=== PATIENT | male | born 1980 | race Two or more races ===

== ENCOUNTER → 2016-12-21 | Outpatient (CLI) | payer OTHER ==
--- NOTE | 2016-12-24 23:38 | ECWPNPC ---
PATIENT NAME: FANNIE VALLE : 1980 GENDER: MALE VISIT DATE: 12/21/2016 DISCHARGE DATE: 12/21/16 1018 VISIT LOCKED DATE TIME: PHYSICIAN: JOAQUIM LIM RESOURCE: JOAQUIM LIM REASON FOR APPOINTMENT 1. NECK HISTORY OF PRESENT ILLNESS HISTORY OF PRESENT ILLNESS: PAIN THE PATIENT DESCRIBES THE PAIN... 35 YEAR OLD MALE PATIENT WITH HISTORY OF CHRONIC NECK PAIN. PATIENT DESCRIBES THE PAIN ACHING, AND HAVING IT ALL THE TIME WITH A PAIN SCORE OF 3/10 ON TODAY'S VISIT. PATIENT REPORTS THAT HIS NECK PAIN STARTED ABOUT 10 YEARS AGO, HE WAS SITTING AT A CHAIR AT HIS DESK WHEN HE BEGAN TO FEEL TIGHTNESS HIS NECK WITH DIFFICULTIES IN THE MOVEMENT OF HIS NECK. PATIENT STATES THAT SINCE THEN TWICE OR THREE TIME A YEAR THE TIGHTNESS AND RESTRICTION OF MOVEMENT WOULD RETURN. PATIENT STATES THAT 6 YEARS PRIOR TO THE NECK PAIN HE SUFFERED A TRAUMATIC BRAIN INJURY. PATIENT STATES THAT DUE TO THE NECK PAIN HE HAS RADIATING PAIN UP THE BACK OF HIS HEAD AND RADIATING PAIN THE DOWN THE BACK OF HIS SHOULDER AND DOWN THE ARM. PATIENT DENIES UNEXPLAINABLE WEIGHT LOSS, FEVER, CHILLS, NEW CHANGES ON HIS URINARY OR BOWEL CONTROL. FALL RISK SCREENING: SCREENING :NO FALLS IN THE PAST YEAR CURRENT MEDICATIONS TAKING VITAMIN D-3 5000 UNIT TABLET 1 TABLET ORALLY ONCE A DAY TAKING VITAMIN B12 500 MCG TABLET 1 TABLET ORALLY ONCE A DAY TAKING FISH OIL 1000 MG CAPSULE 1 CAPSULE ORALLY ONCE A DAY TAKING RANITIDINE 75 75 MG TABLET 1 TABLET ORALLY TWICE A DAY MEDICATION LIST REVIEWED AND RECONCILED WITH THE PATIENT PAST MEDICAL HISTORY TBI DEPRESSION ANXIETY AUDITORY PROCESSING DISORDER ALLERGIES N.K.D.A. SURGICAL HISTORY DENIES PAST SURGICAL HISTORY FAMILY HISTORY FATHER: ALIVE 56 YRS MOTHER: ALIVE 58 YRS SIBLINGS: ALIVE SON(S): ALIVE 9 YRS 3 BROTHER(S) , 1 SISTER(S) - HEALTHY. 1 SON(S) - HEALTHY. 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 VISION IMPAIRED?YES :CORRECTIVE LENSES COGNITIVELY IMPAIRED?YES TBI 2004 READINESS TO LEARN?YES LEARNING PREFERENCES?NO LEARNING CAPABILITIES PRESENT?YES EMOTIONAL BARRIERS?NO SPECIAL DEVICES?NO ASSURANCE MANAGER INSURANCE NEEDED?NO ADVANCED DIRECTIVES HEALTH CARE PROXY?NO WOULD YOU LIKE MORE INFORMATION?NO DO YOU HAVE A DNR?NO WOULD YOU LIKE MORE INFORMATION?NO LIVING WILL?NO WOULD YOU LIKE MORE INFORMATION?NO POWER OF REGULATORY ANALYST?NO WOULD YOU LIKE MORE INFORMATION?NO HOSPITALIZATION/MAJOR DIAGNOSTIC PROCEDURE TBI 2003 REVIEW OF SYSTEMS CONSTITUTIONAL: ANY CHANGE IN YOUR MEDICAL CONDITION? NO . CHILLS NO . FEVER NO . INFECTION: DO YOU HAVE NEW INFECTIONS? NO . DO YOU HAVE HISTORY OF MRSA? NO . MUSCULOSKELETAL: ANY NEW PATTERNS OF PAIN OR NUMBNESS? NO . GASTROENTEROLOGY: ANY NEW CHANGE IN BOWEL CONTROL? NO . GENITOURINARY: ANY NEW CHANGE IN BLADDER CONTROL? YES, DRIBBLING BEGAN APPROXIMATELY 2009 . IS THERE A CHANCE YOU COULD BE ? NO . HEMATOLOGY/LYMPH: DO YOU TAKE ANY BLOOD THINNERS? (FOR EXAMPLE- COUMADIN, PLAVIX, AGGRENOX, PLATEL, PRADAXA, OR XARELTO) NO . WHEN WAS YOUR LAST DOSE? DATE: TIME: . NEUROLOGY: HAVE YOU FALLEN IN THE PAST 6 MONTHS? NO . ANY NEW EXTREMITY NUMBNESS OR WEAKNESS? NO . CARDIOLOGY: DO YOU HAVE A PACEMAKER OR DEFIBRILLATOR? NO . RESPIRATORY: HAVE YOU BEEN SICK IN THE PAST WEEK? NO . FEVER NO . FLU LIKE SYMPTOMS? NO . COUGH NO . INTEGUMENTARY: DO YOU HAVE ANY RASHES OR OPEN SORES? NO . ALLERGIC/IMMUNO: ARE YOU ALLERGIC TO SHELLFISH OR IV DYE? NO . ANY NEW ALLERGIES? NO . PSYCHIATRIC: DO YOU HAVE THOUGHTS OF HURTING YOURSELF OR SOMEONE ELSE? NO . ARE YOU ABUSED, NEGLECTED, OR IN AN UNSAFE ENVIRONMENT? NO . ENDOCRINOLOGY: ARE YOU DIABETIC? NO . OTHER: DO YOU NEED ANY PRESCRIPTIONS? NO . IF YES, PLEASE LIST: ____ . ANY NEW PROBLEMS WITH YOUR MEDICATIONS? NO . WHEN DID YOU LAST EAT? ____ . WHEN DID YOU LAST DRINK? ____ . WHAT DID YOU LAST DRINK? ____ . NAME OF PERSON DRIVING YOU HOME? ____ . DO YOU HAVE ANY OTHER QUESTIONS OR CONCERNS NO . REVIEWED BY: PROVIDER: JAOQUIM LIM MD . VITAL SIGNS WT 208 LBS, HT 72 IN, BMI 28.21 INDEX, BP 134/77 MM HG, HR 67 /MIN, RR 16 /MIN, TEMP 98.3 F, OXYGEN SAT % 97%, REVIEWED BY: CS (DONE AT 0847). EXAMINATION : PATIENT IS ALERT O X 3 AND COOPERATIVE. PATIENT IS ABLE TO EXTEND HIS NECK TO 40 DEGREES AND FLEX HIS NECK TO 15 DEGREES. LATER MOVEMENT OF THE NECK TO THE LEFT 10 DEGREES AND RIGHT 10 DEGREES WITH DISCOMFORT. PATIENT'S RIGHT ARM IS WEAKER COMPARED TO HIS LEFT ARM. RIGHT HAND VASCULAR TECHNICIAN IS WEAKER COMPARED TO THE LEFT HAND VASCULAR TECHNICIAN. THE RIGHT SHOULDER IS REDUCED COMPARED TO THE LEFT SHOULDER. ASSESSMENTS CERVICALGIA - M54.2 (PRIMARY) CERVICAL DISC DISORDER AT C4-C5 LEVEL WITH RADICULOPATHY - M50.121 CERVICAL DISC DISORDER AT C5-C6 LEVEL WITH RADICULOPATHY - M50.122 CERVICAL DISC DISORDER AT C6-C7 LEVEL WITH RADICULOPATHY - M50.123 TREATMENT CERVICALGIA START GABAPENTIN CAPSULE, 300 MG, 1 CAPSULE, ORALLY FOR PAIN, BEFORE BEDTIME, 30 DAY(S), 30, REFILLS 0 NOTES: WE DISCUSSED SEVERAL ISSUES WITH MR. VALLE PAIN MANAGEMENT CASE. AT THIS TIME I WILL HAVE THE PATIENT START ON GABAPENTIN TODAY. 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 INFORMED THE PATIENT IN ORDER TO BETTER ASSESS HIS PAIN MANAGEMENT NEEDS I WILL NEED A COPY OF THE CERVICAL MRI. PATIENT WILL FOLLOW UP WITH ME IN ONE WEEK AND HE WILL BRING A COPY OF THE MRI WITH HIM ON THE NEXT VISIT. INSTRUCTIONS WERE GIVEN, QUESTIONS WERE ANSWERED, PATIENT REPORTS UNDERSTANDING AND AGREES WITH THE PLAN. I, DREA BRYSON, DOCUMENTED THE ABOVE INFORMATION ACTING A SCRIBE FOR DR. LIM. I HAVE REVIEWED THE ABOVE DOCUMENT, WRITTEN BY DREA AVELARIBAbelino AND I VERIFY THAT IT IS ACCURATE. DR. DONTA AKINS -THANK YOU FOR YOUR KIND REFERRAL OF MR. VALLE. IF YOU WOULD LIKE TO DISCUSS HIS CASE WITH ME, PLEASE CALL ME AT THE PAIN CENTER AT [phone]. [facility] PA[facility] TEACHING: MEDICATIONS GABAPENTIN INFORMATION PROVIDED TO PT. VERBALIZED UNDERSTANDING.. PROCEDURE TEACHING ORIENTED TO PLAN OF CARE AND PAIN MANAGEMENT. VERBALIZED UNDERSTANDING.. PROCEDURE CODES FA211 ESTABILISHED PATIENT [facility] FACILITY CHARGE D5854 PAIN ASSESS POS TOOL F/U PLAN DOC G8427 DOC MEDS VERIFIED W/PT OR RE DISPOSITION & COMMUNICATION FOLLOW UP 1 WEEK ELECTRONICALLY SIGNED BY JOAQUIM LIM MD ON 12/24/2016 AT 05:02 PM EDT DISCLAIMER : THIS IS A VISIT SUMMARY EXTRACTED FROM THE [employer] CHART. IT IS NOT A COPY OF THE [employer] PROGRESS NOTE. JONNIE
== END ==
LOC: M PAIN 08:40
PROVIDERS: ATTEND Anesthesiology
DX: G89.29 Other chronic pain (principal); M50.121 Cervical disc disorder at C4-C5 level with radiculopathy; M50.122 Cervical disc disorder at C5-C6 level with radiculopathy; M50.123 Cervical disc disorder at C6-C7 level with radiculopathy; Z87.820 Personal history of traumatic brain injury; F32.9 Major depressive disorder, single episode, unspecified; F41.9 Anxiety disorder, unspecified; Z79.899 Other long term (current) drug therapy; Z87.891 Personal history of nicotine dependence

== ENCOUNTER → 2016-12-29 | Outpatient (CLI) | payer OTHER ==
--- NOTE | 2017-01-09 00:34 | ECWPNPC ---
PATIENT NAME: FANNIE VALLE : 1980 GENDER: MALE VISIT DATE: 12/29/2016 DISCHARGE DATE: 12/29/16 0924 VISIT LOCKED DATE TIME: PHYSICIAN: JOAQUIM LIM RESOURCE: JOAQUIM LIM REASON FOR APPOINTMENT 1. BACK HISTORY OF PRESENT ILLNESS GENERAL: 36 YEAR OLD MALE PATIENT WITH HISTORY OF CHRONIC NECK PAIN. PATIENT DESCRIBES THE PAIN ACHING, BURNING, IT COMES AND GOES, AND HAVING IT ALL THE TIME WITH A PAIN SCORE OF 3-4/10 ON TODAY'S VISIT. PATIENT STATES THAT DUE TO THE NECK PAIN HE HAS RADIATING PAIN UP THE BACK OF HIS HEAD AND RADIATING PAIN THE DOWN THE BACK OF HIS SHOULDER AND DOWN THE ARM. PATIENT REPORTS THAT SINCE LAST WEEK HIS NECK PAIN HAS GONE UP. PATIENT DENIES UNEXPLAINABLE WEIGHT LOSS, FEVER, CHILLS, NEW CHANGES ON HIS URINARY OR BOWEL CONTROL. CURRENT MEDICATIONS TAKING VITAMIN D-3 5000 UNIT TABLET 1 TABLET ORALLY ONCE A DAY TAKING VITAMIN B12 500 MCG TABLET 1 TABLET ORALLY ONCE A DAY TAKING FISH OIL 1000 MG CAPSULE 1 CAPSULE ORALLY ONCE A DAY TAKING RANITIDINE 75 75 MG TABLET 1 TABLET ORALLY TWICE A DAY TAKING GABAPENTIN 300 MG CAPSULE 1 CAPSULE ORALLY FOR PAIN BEFORE BEDTIME MEDICATION LIST REVIEWED AND RECONCILED WITH THE PATIENT PAST MEDICAL HISTORY TBI DEPRESSION ANXIETY AUDITORY PROCESSING DISORDER ALLERGIES N.K.D.A. SURGICAL HISTORY NO SURGICAL HISTORY DOCUMENTED. FAMILY HISTORY FATHER: ALIVE 56 YRS MOTHER: ALIVE 58 YRS SIBLINGS: ALIVE SON(S): ALIVE 9 YRS 3 BROTHER(S) , 1 SISTER(S) - HEALTHY. 1 SON(S) - HEALTHY. SOCIAL HISTORY GENERAL: TOBACCO USE ARE YOU A:FORMER SMOKER HOW LONG HAS IT BEEN SINCE YOU LAST SMOKED?> 10 YEARS LUNG CANCER SCREENING SMOKING STATUS:FORMER SMOKER IS THE PATIENT BETWEEN THE AGE OF 53 AND 75?NO ALCOHOL SCREENING DID YOU HAVE A DRINK CONTAINING ALCOHOL IN THE PAST YEAR?YES HOW OFTEN DID YOU HAVE SIX OR MORE DRINKS ON ONE OCCASION IN THE PAST YEAR?LESS THAN MONTHLY (1 POINT) HOW MANY DRINKS DID YOU HAVE ON A TYPICAL DAY WHEN YOU WERE DRINKING IN THE PAST YEAR?3 OR 4 (1 POINT) HOW OFTEN DID YOU HAVE A DRINK CONTAINING ALCOHOL IN THE PAST YEAR?TWO TO FOUR TIMES A MONTH (2 POINTS) POINTS4 INTERPRETATIONPOSITIVE TAOISM TAOISM NO PREFERENCE LEARNING BARRIERS / SPECIAL NEEDS BARRIERS TO LEARNING?YES HEARING IMPAIRED?YES AUDOTORY PROCESSING DISORDER VISION IMPAIRED?YES COGNITIVELY IMPAIRED?YES TBI 2004 :HEARING AIDES :CORRECTIVE LENSES READINESS TO LEARN?YES LEARNING PREFERENCES?NO LEARNING CAPABILITIES PRESENT?YES EMOTIONAL BARRIERS?NO SPECIAL DEVICES?NO ACUTE DIALYSIS NURSE NEEDED?NO ADVANCED DIRECTIVES HEALTH CARE PROXY?NO WOULD YOU LIKE MORE INFORMATION?NO POWER OF ALTERATIONS EXPERT?NO DO YOU HAVE A DNR?NO WOULD YOU LIKE MORE INFORMATION?NO LIVING WILL?NO WOULD YOU LIKE MORE INFORMATION?NO WOULD YOU LIKE MORE INFORMATION?NO HOSPITALIZATION/MAJOR DIAGNOSTIC PROCEDURE TBI 2003 VITAL SIGNS WT 207 LBS, HT 72 IN, BMI 28.07 INDEX, BP 133/82 MM HG, HR 80 /MIN, RR 16 /MIN, TEMP 98.8 F, OXYGEN SAT % 95%, REVIEWED BY: CM. EXAMINATION GENERAL: PATIENT IS ALERT O X 3 AND COOPERATIVE. PATIENT IS ABLE TO EXTEND HIS NECK TO 40 DEGREES AND FLEX HIS NECK TO 15 DEGREES. LATER MOVEMENT OF THE NECK TO THE LEFT 10 DEGREES AND RIGHT 10 DEGREES WITH DISCOMFORT. PATIENT'S RIGHT ARM IS WEAKER COMPARED TO HIS LEFT ARM. RIGHT HAND HOG TRADER IS WEAKER COMPARED TO THE LEFT HAND HOG TRADER. THE RIGHT SHOULDER IS REDUCED COMPARED TO THE LEFT SHOULDER. THERE IS TENDERNESS IN THE CERVICAL PARASPINAL MUSCLE GROUP. MRI OF THE CERVICAL SPINE DONE ON SHOWS CANAL STENOSIS AND ARTHRITIS AT MULTIPLE LEVELS. ASSESSMENTS CERVICALGIA - M54.2 SPONDYLOSIS WITHOUT MYELOPATHY OR RADICULOPATHY, CERVICAL REGION - M47.812 TREATMENT OTHERS NOTES: WE DISCUSSED SEVERAL ISSUES WITH MR. VALLE'S PAIN MANAGEMENT CASE. PATIENT WILL CONTINUE WITH THE SAME MEDICATION REGIMEN BEFORE. PATIENT BROUGHT TODAY THE RADIOLOGY REPORT OF HIS NECK. AT THIS TIME AFTER EXAMINING THE PATIENT AND REVIEWING THE MRI, MR VALLE IS A GOOD CANDIDATE FOR A CERVICAL FACET BLOCK. WE DISCUSSED THE RISK, BENEFITS, AND ALTERNATIVES AND THE PATIENT WOULD LIKE TO PROCEED. PATIENT WILL BE BOOKED PENDING APPROVAL. INSTRUCTIONS WERE GIVEN, QUESTIONS WERE ANSWERED, PATIENT REPORTS UNDERSTANDING AND AGREES WITH THE PLAN. I, DREA BRYSON, DOCUMENTED THE ABOVE INFORMATION ACTING A SCRIBE FOR DR. LIM. I HAVE REVIEWED THE ABOVE DOCUMENT, WRITTEN BY DREA BRYSON SCRIBAbelino AND I VERIFY THAT IT IS ACCURATE. PROCEDURE CODES FA211 ESTABILISHED PATIENT [facility] FACILITY CHARGE G9094 DOC MEDS VERIFIED W/PT OR RE L5796 PAIN ASSESS POS TOOL F/U PLAN DOC DISPOSITION & COMMUNICATION FOLLOW UP CFBT PENDING APPROVAL ELECTRONICALLY SIGNED BY JOAQUIM LIM MD ON 01/08/2017 AT 06:49 PM EDT DISCLAIMER : THIS IS A VISIT SUMMARY EXTRACTED FROM THE [employer] CHART. IT IS NOT A COPY OF THE [employer] PROGRESS NOTE. JONNIE
== END | disposition home or self-care (01) ==
LOC: M PAIN 08:40
PROVIDERS: ATTEND Anesthesiology
DX: G89.29 Other chronic pain (principal); M54.2 Cervicalgia; M47.812 Spondylosis without myelopathy or radiculopathy, cervical region; F33.9 Major depressive disorder, recurrent, unspecified; F41.9 Anxiety disorder, unspecified; H93.25 Central auditory processing disorder; Z87.820 Personal history of traumatic brain injury; Z79.899 Other long term (current) drug therapy; Z87.891 Personal history of nicotine dependence

== ENCOUNTER → 2017-01-12 | Outpatient (CLI) | payer OTHER ==
[~2017-01-12] MED LIST: BUPIVACAINE HCL 0.25% 30 ML VIAL As Ordered ONE; ISOVUE-M 300 61% 15ML VIAL (Q9967) As Ordered ONE; LIDOCAINE 1% SDV INJ 30 ML VIAL As Ordered ONE; TRIAMCINOLONE ACETONIDE SUSP 40 MG/ML VIAL (J3301) As Ordered ONE; diazePAM 5 MG TAB As Ordered ONE; oxyCODONE 5MG TAB As Ordered ONE
--- NOTE | 2017-01-12 10:33 | REP ---
Partial cervical spine series: Two views. History: Cervical facet block for pain. 13 seconds of fluoroscopy time is reported. Findings: A sequence of two last image hold fluoroscopic spot images of the cervical spine document needle position and contrast injection associated with cervical facet block injection procedure. Signed by Andrea Hurt MD 01/12/2017 11:20 A
--- NOTE | 2017-01-23 00:47 | ECWPNPC ---
PATIENT NAME: FANNIE VALLE : 1980 GENDER: MALE VISIT DATE: 01/12/2017 DISCHARGE DATE: 01/12/17 1033 VISIT LOCKED DATE TIME: PHYSICIAN: JOAQUIM LIM RESOURCE: JOAQUIM LIM REASON FOR APPOINTMENT 1. CFBT PENDING APPROVAL HISTORY OF PRESENT ILLNESS HISTORY OF PRESENT ILLNESS: PAIN THE PATIENT DESCRIBES THE PAIN... THE PATIENT DESCRIBES THE PAIN... PAIN THE PATIENT DESCRIBES THE PAIN... THE PATIENT DESCRIBES THE PAIN... FALL RISK SCREENING: SCREENING :NO FALLS IN THE PAST YEAR :NO FALLS IN THE PAST YEAR SCREENING :NO FALLS IN THE PAST YEAR :NO FALLS IN THE PAST YEAR CURRENT MEDICATIONS TAKING VITAMIN D-3 5000 UNIT TABLET 1 TABLET ORALLY ONCE A DAY, NOTES: 01-10-17899 TAKING VITAMIN B12 500 MCG TABLET 1 TABLET ORALLY ONCE A DAY, NOTES: 01-10-17899 TAKING FISH OIL 1000 MG CAPSULE 1 CAPSULE ORALLY ONCE A DAY, NOTES: 01-10-17899 TAKING RANITIDINE 75 75 MG TABLET 1 TABLET ORALLY TWICE A DAY, NOTES: 01-12-17599 TAKING GABAPENTIN 300 MG CAPSULE 1 CAPSULE ORALLY FOR PAIN BEFORE BEDTIME, NOTES: 01-11-17899 TAKING ZOLOFT 50 MG TABLET 1 TABLET ORALLY ONCE A DAY MEDICATION LIST REVIEWED AND RECONCILED WITH THE PATIENT PAST MEDICAL HISTORY TBI DEPRESSION ANXIETY AUDITORY PROCESSING DISORDER ALLERGIES N.K.D.A. HOSPITALIZATION/MAJOR DIAGNOSTIC PROCEDURE TBI 2003 REVIEW OF SYSTEMS CONSTITUTIONAL: ANY CHANGE IN YOUR MEDICAL CONDITION? NO, NO . CHILLS NO, NO . FEVER NO, NO . INFECTION: DO YOU HAVE NEW INFECTIONS? NO, NO . DO YOU HAVE HISTORY OF MRSA? NO, NO . MUSCULOSKELETAL: ANY NEW PATTERNS OF PAIN OR NUMBNESS? NO, NO . GASTROENTEROLOGY: ANY NEW CHANGE IN BOWEL CONTROL? NO, NO . GENITOURINARY: ANY NEW CHANGE IN BLADDER CONTROL? NO, NO . IS THERE A CHANCE YOU COULD BE ? NO, NO . HEMATOLOGY/LYMPH: DO YOU TAKE ANY BLOOD THINNERS? (FOR EXAMPLE- COUMADIN, PLAVIX, AGGRENOX, PLATEL, PRADAXA, OR XARELTO) NO, NO . WHEN WAS YOUR LAST DOSE? DATE: TIME: , DATE: TIME: . NEUROLOGY: HAVE YOU FALLEN IN THE PAST 6 MONTHS? NO, NO . ANY NEW EXTREMITY NUMBNESS OR WEAKNESS? NO, NO . CARDIOLOGY: DO YOU HAVE A PACEMAKER OR DEFIBRILLATOR? NO, NO . RESPIRATORY: HAVE YOU BEEN SICK IN THE PAST WEEK? NO, NO . FEVER NO, NO . FLU LIKE SYMPTOMS? NO, NO . COUGH NO, NO . INTEGUMENTARY: DO YOU HAVE ANY RASHES OR OPEN SORES? YES KNEE RUG BURN, NO . ALLERGIC/IMMUNO: ARE YOU ALLERGIC TO SHELLFISH OR IV DYE? NO, NO . ANY NEW ALLERGIES? NO, NO . PSYCHIATRIC: DO YOU HAVE THOUGHTS OF HURTING YOURSELF OR SOMEONE ELSE? NO, NO . ARE YOU ABUSED, NEGLECTED, OR IN AN UNSAFE ENVIRONMENT? NO, NO . ENDOCRINOLOGY: ARE YOU DIABETIC? NO, NO . OTHER: DO YOU NEED ANY PRESCRIPTIONS? NO, NO . IF YES, PLEASE LIST: ____, ____ . ANY NEW PROBLEMS WITH YOUR MEDICATIONS? NO, NO . WHEN DID YOU LAST EAT? ____1900 5-24 17, ____ . WHEN DID YOU LAST DRINK? ____15, ____ . WHAT DID YOU LAST DRINK? ____WATER, ____ . NAME OF PERSON DRIVING YOU HOME? ____KERI , WHO IS HERE, ____ . DO YOU HAVE ANY OTHER QUESTIONS OR CONCERNS NO, NO . REVIEWED BY: PROVIDER: , . VITAL SIGNS WT 202 LBS, HT 72 IN, BMI 27.39 INDEX, BP 123/68 MM HG, HR 65 /MIN, RR 16 /MIN, TEMP 97.8 F, OXYGEN SAT % 98%, NA INITIALS AL [id number]. ASSESSMENTS SPONDYLOSIS WITHOUT MYELOPATHY OR RADICULOPATHY, CERVICAL REGION - M47.812 (PRIMARY) SPONDYLOSIS WITHOUT MYELOPATHY OR RADICULOPATHY, CERVICOTHORACIC REGION - M47.813 PROCEDURES PN CERVICAL FACET BLOCK LOW BILATERAL CERVICAL PRE PROCEDURE DIAGNOSIS CERVICAL SPONDYLOSIS, CERVICOTHORACIC SPONDYLOSIS POST PROCEDURE DIAGNOSIS CERVICAL SPONDYLOSIS, CERVICOTHORACIC SPONDYLOSIS PROCEDURE RIGHT C6-C7 AND RIGHT C7-T1 CERVICAL FACET BLOCK SURGEON DR. JOAQUIM LIM SPRING TACKER NONE ANESTHESIA LOCAL PRE PROCEDURE NOTE THE PATIENT HAS HISTORY OF CHRONIC CERVICAL PAIN. I EVALUATE THE PATIENT AND REVIEWED THE CHART. I WENT OVER THE RISKS, ALTERNATIVES, AND BENEFITS ASSOCIATED WITH THIS PROCEDURE. THE PATIENT WOULD LIKE TO PROCEED AND GIVE CONSENT TO PERFORMED THE PROCEDURE. THE PATIENT DENIES UNEXPLAINABLE WEIGHT LOSS, FEVER, CHILLS, OR NEW CHANGES IN URINARY OR BOWEL CONTROL DESCRIPTION OF PROCEDURE THE PATIENT WAS BROUGHT TO THE PROCEDURE ROOM AND PLACED IN THE PRONE POSITION. THE CERVICOTHORACIC AREA WAS CLEANED WITH CHLORAPREP SOLUTION AND DRAPED ASEPTICALLY. THE PROCEDURE WAS DONE UNDER STERILE CONDITIONS. I CHECKED LATERALITY AND THE LEVEL WHERE THE PROCEDURE WAS GOING TO BE PERFORMED WITH THE PATIENT AND THE SUPPORTING STAFF AT THE MOMENT OF THE TIME OUT IN THE PROCEDURE ROOM. UNDER FLUOROSCOPIC GUIDANCE, TARGET POINT WAS SELECTED AT THE RIGHT C6-C7 AND RIGHT C7-T1 CERVICAL FACET JOINT. TARGET POINTS WERE SELECTED AFTER LATERAL ROTATION AND TILT OF THE MAGNIFIER OF THE C-ARM. LIDOCAINE 0.5% WAS USED TO NUMB THE SKIN AND THE SUBCUTANEOUS TISSUE BELOW IT. SPINAL NEEDLES, 22-GAUGE, WERE ADVANCED UNDER FLUOROSCOPIC GUIDANCE AND FOLLOWING PATIENT FEEDBACK UNTIL THE TARGETS WERE TOUCHED. THE POSITION OF THE NEEDLES WAS VERIFIED WITH AP AND LATERAL VIEWS. AFTER PROPER POSITION OF THE NEEDLES WAS ACHIEVED, ISOVUE M DYE 30, 0.1 ML WAS INJECTED SHOWING SPREAD OF THE DYE. THEN A SOLUTION OF 0.9 ML OF BUPIVACAINE 0.125% AND KENALOG 10 MG WAS INJECTED AT EACH SITE. THERE WAS NO EVIDENCE OF BLOOD, PARESTHESIA OR CEREBROSPINAL FLUID DURING THE PROCEDURE. THE PATIENT WAS SENT TO THE RECOVERY ROOM. THE PATIENT WAS MOVING THE EXTREMITIES AND DOING WELL. THERE WAS NO COMPLICATION DURING THE PROCEDURE. FLUOROSCOPY TIME WAS 13 SECONDS POST PROCEDURE NOTE THE PATIENT WILL BE SEEN IN A FOLLOW UP IN THE NEXT FEW WEEKS. INSTRUCTIONS WERE GIVEN, QUESTIONS WERE ANSWERED, AND THE PATIENT EXPRESSED UNDERSTANDING AND AGREES WITH THE PLAN. I, ASHLEE MENDOZA, DOCUMENTED THE ABOVE INFORMATION ACTING A SCRIBE FOR DR. LIM. I, DR. LIM, HAVE REVIEWED THE ABOVE DOCUMENT, SCRIBED BY ASHLEE MENDOZA, AND I VERIFY THAT IT IS ACCURATE DIAGNOSTIC IMAGING [facility] FACET BLOCK (PAIN)[id number] PROCEDURE CODES 82365 INJ PARAVERT F JNT C/T 1 LEV 31075 INJ PARAVERT F JNT C/T 2 LEV 6045F RADXPS IN END [id number] PXD DISPOSITION & COMMUNICATION FOLLOW UP 3 WEEKS ELECTRONICALLY SIGNED BY JOAQUIM LIM MD ON 01/22/2017 AT 10:04 PM EDT DISCLAIMER : THIS IS A VISIT SUMMARY EXTRACTED FROM THE [employer] CHART. IT IS NOT A COPY OF THE [employer] PROGRESS NOTE. JONNIE
== END ==
LOC: M PAIN 08:40
PROVIDERS: ATTEND Anesthesiology
DX: M47.812 Spondylosis without myelopathy or radiculopathy, cervical region (principal); M47.813 Spondylosis without myelopathy or radiculopathy, cervicothoracic region
CPT/HCPCS: 64490; 64491; J3301; Q9967

== ENCOUNTER → 2017-01-26 | Outpatient (CLI) | payer OTHER ==
--- NOTE | 2017-02-06 01:35 | ECWPNPC ---
PATIENT NAME: FANNIE VALLE : 1980 GENDER: MALE VISIT DATE: 01/26/2017 DISCHARGE DATE: 01/26/17 1501 VISIT LOCKED DATE TIME: PHYSICIAN: JOAQUIM LIM RESOURCE: JOAQUIM LIM REASON FOR APPOINTMENT 1. POST FACET HISTORY OF PRESENT ILLNESS GENERAL: 36 YEAR OLD MALE PATIENT WITH HISTORY OF CHRONIC NECK PAIN. PATIENT DESCRIBES THE PAIN ACHING, BURNING, AND HAVING IT ALL THE TIME WITH A PAIN SCORE OF 2-3/10 ON TODAY'S VISIT. PATIENT RECEIVED A RIGHT C6-C7 AND C7-T1 CERVICAL FACET BLOCK THERAPEUTIC INJECTION AND REPORTS THAT THE PAIN IS DULLER AND NOT SHARP BEFORE AND THE RADIATING PAIN DOWN THE ARMS IS GONE. PATIENT REPORTS THAT THE GABAPENTIN DOESN'T REALLY HELP HIM TO SLEEP AND HE DOES NOT FEEL ANY DIFFERENCE AT THIS TIME WITH THE MEDICATION. PATIENT REPORTS THAT EVEN WITH THE TRAZODONE, HE STILL HAS DIFFICULTIES SLEEPING AT NIGHT. PATIENT REPORTS THAT HE HAS TRIED IBUPROFEN IN THE PAST AND DID NOT HELP WITH HIS PAIN. PATIENT DENIES UNEXPLAINABLE WEIGHT LOSS, FEVER, CHILLS, NEW CHANGES ON HIS URINARY OR BOWEL CONTROL. HISTORY OF PRESENT ILLNESS: PAIN THE PATIENT DESCRIBES THE PAIN... FALL RISK SCREENING: SCREENING :NO FALLS IN THE PAST YEAR CURRENT MEDICATIONS TAKING VITAMIN D-3 5000 UNIT TABLET 1 TABLET ORALLY ONCE A DAY, NOTES: 01-10-17899 TAKING VITAMIN B12 500 MCG TABLET 1 TABLET ORALLY ONCE A DAY, NOTES: 01-10-17899 TAKING FISH OIL 1000 MG CAPSULE 1 CAPSULE ORALLY ONCE A DAY, NOTES: 01-10-17899 TAKING RANITIDINE 75 75 MG TABLET 1 TABLET ORALLY TWICE A DAY, NOTES: 01-12-17599 TAKING ZOLOFT 100 MG TABLET 1 TABLET ORALLY ONCE A DAY TAKING GABAPENTIN 300 MG CAPSULE 1 CAPSULE ORALLY FOR PAIN BEFORE BEDTIME, NOTES: 01-11-17899 TAKING TRAZODONE HCL 100 MG TABLET 1 TABLET AT BEDTIME ORALLY ONCE A DAY MEDICATION LIST REVIEWED AND RECONCILED WITH THE PATIENT PAST MEDICAL HISTORY TBI DEPRESSION ANXIETY AUDITORY PROCESSING DISORDER ALLERGIES N.K.D.A. SURGICAL HISTORY NO SURGICAL HISTORY DOCUMENTED. FAMILY HISTORY FATHER: ALIVE 56 YRS MOTHER: ALIVE 58 YRS SIBLINGS: ALIVE SON(S): ALIVE 9 YRS 3 BROTHER(S) , 1 SISTER(S) - HEALTHY. 1 SON(S) - HEALTHY. SOCIAL HISTORY GENERAL: TOBACCO USE ARE YOU A:FORMER SMOKER HOW LONG HAS IT BEEN SINCE YOU LAST SMOKED?> 10 YEARS LUNG CANCER SCREENING SMOKING STATUS:FORMER SMOKER IS THE PATIENT BETWEEN THE AGE OF 53 AND 75?NO ALCOHOL SCREENING DID YOU HAVE A DRINK CONTAINING ALCOHOL IN THE PAST YEAR?YES HOW OFTEN DID YOU HAVE SIX OR MORE DRINKS ON ONE OCCASION IN THE PAST YEAR?LESS THAN MONTHLY (1 POINT) HOW MANY DRINKS DID YOU HAVE ON A TYPICAL DAY WHEN YOU WERE DRINKING IN THE PAST YEAR?3 OR 4 (1 POINT) HOW OFTEN DID YOU HAVE A DRINK CONTAINING ALCOHOL IN THE PAST YEAR?TWO TO FOUR TIMES A MONTH (2 POINTS) POINTS4 INTERPRETATIONPOSITIVE JUDAISM JUDAISM NO PREFERENCE LEARNING BARRIERS / SPECIAL NEEDS BARRIERS TO LEARNING?YES HEARING IMPAIRED?YES AUDOTORY PROCESSING DISORDER VISION IMPAIRED?YES COGNITIVELY IMPAIRED?YES TBI 2003 :HEARING AIDES :CORRECTIVE LENSES READINESS TO LEARN?YES LEARNING PREFERENCES?NO LEARNING CAPABILITIES PRESENT?YES EMOTIONAL BARRIERS?NO SPECIAL DEVICES?NO INDIGO MIXER NEEDED?NO ADVANCE DIRECTIVES HEALTH CARE PROXY?NO WOULD YOU LIKE MORE INFORMATION?NO POWER OF GENETIC SUPERVISOR?NO DO YOU HAVE A DNR?NO WOULD YOU LIKE MORE INFORMATION?NO LIVING WILL?NO WOULD YOU LIKE MORE INFORMATION?NO WOULD YOU LIKE MORE INFORMATION?NO HOSPITALIZATION/MAJOR DIAGNOSTIC PROCEDURE TBI 2004 REVIEW OF SYSTEMS CONSTITUTIONAL: ANY CHANGE IN YOUR MEDICAL CONDITION? NO . CHILLS NO . FEVER NO . INFECTION: DO YOU HAVE NEW INFECTIONS? NO . DO YOU HAVE HISTORY OF MRSA? NO . MUSCULOSKELETAL: ANY NEW PATTERNS OF PAIN OR NUMBNESS? NO . GASTROENTEROLOGY: ANY NEW CHANGE IN BOWEL CONTROL? NO . GENITOURINARY: ANY NEW CHANGE IN BLADDER CONTROL? NO . IS THERE A CHANCE YOU COULD BE ? NO . HEMATOLOGY/LYMPH: DO YOU TAKE ANY BLOOD THINNERS? (FOR EXAMPLE- COUMADIN, PLAVIX, AGGRENOX, PLATEL, PRADAXA, OR XARELTO) NO . WHEN WAS YOUR LAST DOSE? DATE: TIME: . NEUROLOGY: HAVE YOU FALLEN IN THE PAST 6 MONTHS? NO . ANY NEW EXTREMITY NUMBNESS OR WEAKNESS? NO . CARDIOLOGY: DO YOU HAVE A PACEMAKER OR DEFIBRILLATOR? NO . RESPIRATORY: HAVE YOU BEEN SICK IN THE PAST WEEK? NO . FEVER NO . FLU LIKE SYMPTOMS? NO . COUGH NO . INTEGUMENTARY: DO YOU HAVE ANY RASHES OR OPEN SORES? NO . ALLERGIC/IMMUNO: ARE YOU ALLERGIC TO SHELLFISH OR IV DYE? NO . ANY NEW ALLERGIES? NO . PSYCHIATRIC: DO YOU HAVE THOUGHTS OF HURTING YOURSELF OR SOMEONE ELSE? NO . ARE YOU ABUSED, NEGLECTED, OR IN AN UNSAFE ENVIRONMENT? NO . ENDOCRINOLOGY: ARE YOU DIABETIC? NO . OTHER: DO YOU NEED ANY PRESCRIPTIONS? YES PT WILL NEED A SCRIPT FOR GAVAPENTIN . IF YES, PLEASE LIST: ____ . ANY NEW PROBLEMS WITH YOUR MEDICATIONS? NO . WHEN DID YOU LAST EAT? ____ . WHEN DID YOU LAST DRINK? ____ . WHAT DID YOU LAST DRINK? ____ . NAME OF PERSON DRIVING YOU HOME? ____ . DO YOU HAVE ANY OTHER QUESTIONS OR CONCERNS NO . REVIEWED BY: PROVIDER: JOAQUIM LIM MD . VITAL SIGNS WT 200 LBS, HT 72 IN, BMI 27.12 INDEX, BP 124/78 MM HG, HR 79 /MIN, RR 18 /MIN, TEMP 98.4 F, OXYGEN SAT % 95%, NA INITIALS SC 13:37, REVIEWED BY: KG. EXAMINATION GENERAL: PATIENT IS ALERT O X 3 AND COOPERATIVE. THERE IS TENDERNESS IN THE CERVICAL PARASPINAL MUSCLE GROUP MORE ON THE RIGHT SIDE. MRI OF THE CERVICAL SPINE DONE ON SHOWS CANAL STENOSIS AND ARTHRITIS AT MULTIPLE LEVELS. ASSESSMENTS CERVICALGIA - M54.2 (PRIMARY) SPONDYLOSIS WITHOUT MYELOPATHY OR RADICULOPATHY, CERVICOTHORACIC REGION - M47.813 SPONDYLOSIS WITHOUT MYELOPATHY OR RADICULOPATHY, CERVICAL REGION - M47.812 TREATMENT CERVICALGIA REFILL GABAPENTIN CAPSULE, 300 MG, 1 CAPSULE, ORALLY FOR PAIN, THREE TIMES DAILY, 30 DAY(S), 90, REFILLS 1, NOTES: 01-11-17 0900 NOTES: WE DISCUSSED SEVERAL ISSUES WITH MR. VALLE'S PAIN MANAGEMENT CASE. AT THIS TIME I WILL REFILL GABAPENTIN FOR THE PATIENT TODAY, HE IS TAKING THIS MEDICATION FOR NEUROPATHIC PAIN. PATIENT STATED THAT NOW THE BURNING PAIN CAN BE BAD, ADVISED THE PATIENT SHOULD THE BURNING PAIN INCREASE, TO TAKE GABAPENTIN 2 X A DAY AN INCREASE FROM ONE AT NIGHT AND SEE HOW IT AIDS WITH HIS PAIN RELIEF. PATIENT WILL FOLLOW UP WITH ME IN 8 WEEKS. INSTRUCTIONS WERE GIVEN, QUESTIONS WERE ANSWERED, PATIENT REPORTS UNDERSTANDING AND AGREES WITH THE PLAN. I, DREA BRYSON, DOCUMENTED THE ABOVE INFORMATION ACTING A SCRIBE FOR DR. LIM. I HAVE REVIEWED THE ABOVE DOCUMENT, WRITTEN BY DREA HERZOG AND I VERIFY THAT IT IS ACCURATE. PROCEDURE CODES FA211 ESTABILISHED PATIENT [facility] FACILITY CHARGE G8730 PAIN ASSESS POS TOOL F/U PLAN DOC G8427 DOC MEDS VERIFIED W/PT OR RE DISPOSITION & COMMUNICATION FOLLOW UP 3 WEEKS ELECTRONICALLY SIGNED BY JOAQUIM LIM MD ON 02/05/2017 AT 03:38 PM EDT DISCLAIMER : THIS IS A VISIT SUMMARY EXTRACTED FROM THE [employer] CHART. IT IS NOT A COPY OF THE [employer] PROGRESS NOTE. MTDD
== END ==
LOC: M PAIN 13:20
PROVIDERS: ATTEND Anesthesiology
DX: G89.29 Other chronic pain (principal); M54.2 Cervicalgia; M47.813 Spondylosis without myelopathy or radiculopathy, cervicothoracic region; M47.812 Spondylosis without myelopathy or radiculopathy, cervical region; F32.9 Major depressive disorder, single episode, unspecified; F41.9 Anxiety disorder, unspecified; Z87.820 Personal history of traumatic brain injury; Z87.891 Personal history of nicotine dependence; Z79.899 Other long term (current) drug therapy

== ENCOUNTER → 2017-01-31 | Outpatient (REF) | payer OTHER | LOC: M SMT 13:08 | PROVIDERS: ATTEND Nurse Practitioner Family | DX: N39.43 Post-void dribbling (principal) ==

== ENCOUNTER → 2017-03-21 | Outpatient (CLI) | payer OTHER ==
--- NOTE | 2017-04-09 00:45 | ECWPNPC ---
PATIENT NAME: FANNIE VALLE : 1980 GENDER: MALE VISIT DATE: 03/21/2017 DISCHARGE DATE: 03/21/17 1349 VISIT LOCKED DATE TIME: PHYSICIAN: JOAQUIM LIM RESOURCE: JOAQUIM LIM REASON FOR APPOINTMENT 1. NECK PAIN HISTORY OF PRESENT ILLNESS HISTORY OF PRESENT ILLNESS: PAIN THE PATIENT DESCRIBES THE PAIN... 36 YEAR OLD MALE PATIENT WITH HISTORY OF CHRONIC NECK PAIN. PATIENT DESCRIBES THE PAIN ACHING AND BURNING WITH A PAIN SCORE OF 3/10 ON TODAY'S VISIT. PATIENT RECEIVED A RIGHT C6-C7 AND C7-T1 CERVICAL FACET BLOCK THERAPEUTIC INJECTION AND REPORTS THAT THE PAIN IS DULLER AND NOT SHARP BEFORE AND THE RADIATING PAIN DOWN THE ARMS IS GONE. PATIENT STATES THAT GABAPENTIN DOES AID WITH THE RADICULAR PAIN. PATIENT REPORTS THAT EVEN WITH THE TRAZODONE, HE STILL HAS DIFFICULTIES SLEEPING AT NIGHT. PATIENT REPORTS THAT HE HAS TRIED IBUPROFEN IN THE PAST AND DID NOT HELP WITH HIS PAIN. PATIENT DENIES UNEXPLAINABLE WEIGHT LOSS, FEVER, CHILLS, NEW CHANGES ON HIS URINARY OR BOWEL CONTROL. FALL RISK SCREENING: SCREENING :NO FALLS IN THE PAST YEAR CURRENT MEDICATIONS TAKING FISH OIL 1000 MG CAPSULE 1 CAPSULE ORALLY ONCE A DAY, NOTES: 01-10-17899 TAKING OMEPRAZOLE 40 MG CAPSULE DELAYED RELEASE 1 CAPSULE ORALLY ONCE A DAY TAKING GABAPENTIN 300 MG CAPSULE 1 CAPSULE ORALLY FOR PAIN THREE TIMES DAILY, NOTES: 01-11-17899 TAKING WELLBUTRIN SR 100 MG TABLET EXTENDED RELEASE 12 HOUR 1 TABLET IN THE MORNING ORALLY ONCE A DAY TAKING TOPAMAX 25 MG TABLET 1 TABLET ORALLY DAILY TAKING REMERON 15 MG TABLET ONE HALF ORALLY ONCE A DAY TAKING MINIPRESS 1 MG CAPSULE 2 ORALLY ONCE A DAY NOT-TAKING ZOLOFT 100 MG TABLET 2 TABLET ORALLY ONCE A DAY NOT-TAKING TRAZODONE HCL 100 MG TABLET 1 TABLET AT BEDTIME ORALLY ONCE A DAY NOT-TAKING RANITIDINE 75 75 MG TABLET 1 TABLET ORALLY TWICE A DAY, NOTES: 01-12-17599 DISCONTINUED VITAMIN D-3 5000 UNIT TABLET 1 TABLET ORALLY ONCE A DAY, NOTES: 01-10-17899 DISCONTINUED VITAMIN B12 500 MCG TABLET 1 TABLET ORALLY ONCE A DAY, NOTES: 01-10-17899 DISCONTINUED CIPROFLOXACIN HCL 500 MG TABLET 1 TABLET FOR YOUR CYSTOSCOPY TODAY ORALLY ONCE PAST MEDICAL HISTORY TBI DEPRESSION ANXIETY AUDITORY PROCESSING DISORDER ALLERGIES N.K.D.A. REVIEW OF SYSTEMS REVIEWED BY: PROVIDER: JOAQUIM LIM MD . CONSTITUTIONAL: ANY CHANGE IN YOUR MEDICAL CONDITION? NO . CHILLS NO . FEVER NO . INFECTION: DO YOU HAVE NEW INFECTIONS? NO . DO YOU HAVE HISTORY OF MRSA? NO . MUSCULOSKELETAL: ANY NEW PATTERNS OF PAIN OR NUMBNESS? NO . GASTROENTEROLOGY: ANY NEW CHANGE IN BOWEL CONTROL? NO . GENITOURINARY: ANY NEW CHANGE IN BLADDER CONTROL? NO . IS THERE A CHANCE YOU COULD BE ? NO . HEMATOLOGY/LYMPH: DO YOU TAKE ANY BLOOD THINNERS? (FOR EXAMPLE- COUMADIN, PLAVIX, AGGRENOX, PLATEL, PRADAXA, OR XARELTO) NO . WHEN WAS YOUR LAST DOSE? DATE: TIME: . NEUROLOGY: HAVE YOU FALLEN IN THE PAST 6 MONTHS? NO . ANY NEW EXTREMITY NUMBNESS OR WEAKNESS? NO . CARDIOLOGY: DO YOU HAVE A PACEMAKER OR DEFIBRILLATOR? NO . RESPIRATORY: HAVE YOU BEEN SICK IN THE PAST WEEK? NO . FEVER NO . FLU LIKE SYMPTOMS? NO . COUGH NO . INTEGUMENTARY: DO YOU HAVE ANY RASHES OR OPEN SORES? NO . ALLERGIC/IMMUNO: ARE YOU ALLERGIC TO SHELLFISH OR IV DYE? NO . ANY NEW ALLERGIES? NO . PSYCHIATRIC: DO YOU HAVE THOUGHTS OF HURTING YOURSELF OR SOMEONE ELSE? NO . ARE YOU ABUSED, NEGLECTED, OR IN AN UNSAFE ENVIRONMENT? NO . ENDOCRINOLOGY: ARE YOU DIABETIC? NO . OTHER: DO YOU NEED ANY PRESCRIPTIONS? NO . IF YES, PLEASE LIST: ____ . ANY NEW PROBLEMS WITH YOUR MEDICATIONS? NO . WHEN DID YOU LAST EAT? ____ . WHEN DID YOU LAST DRINK? ____ . WHAT DID YOU LAST DRINK? ____ . NAME OF PERSON DRIVING YOU HOME? ____ . DO YOU HAVE ANY OTHER QUESTIONS OR CONCERNS NO . VITAL SIGNS WT 198 LBS, HT 72 IN, BMI 26.85 INDEX, BP 115/78 MM HG, HR 85 /MIN, RR 18 /MIN, TEMP 98.8 F, OXYGEN SAT % 97%, NA INITIALS AW 1314, REVIEWED BY: VD. EXAMINATION : PATIENT IS ALERT O X 3 AND COOPERATIVE. THERE IS TENDERNESS IN THE CERVICAL PARASPINAL MUSCLE GROUP MORE ON THE RIGHT SIDE. MRI OF THE CERVICAL SPINE DONE ON SHOWS CANAL STENOSIS AND ARTHRITIS AT MULTIPLE LEVELS. ASSESSMENTS SPONDYLOSIS WITHOUT MYELOPATHY OR RADICULOPATHY, CERVICAL REGION - M47.812 (PRIMARY) CERVICALGIA - M54.2 SPONDYLOSIS WITHOUT MYELOPATHY OR RADICULOPATHY, CERVICOTHORACIC REGION - M47.813 TREATMENT SPONDYLOSIS WITHOUT MYELOPATHY OR RADICULOPATHY, CERVICAL REGION NOTES: WE DISCUSSED SEVERAL ISSUES WITH MR. VALLE' PAIN MANAGEMENT CASE. AT THIS TIME I WOULD LIKE THE PATIENT TO INCREASE GABAPENTIN BY ONE TABLET TO SEE HIS PAIN RELIEF WITH INCREASE. PATIENT WILL ALSO START CELEBREX BUT WAS ADVISED TO STOP THE MEDICATION IF HE HAS ANY ADVERSE SIDE EFFECTS. PATIENT STATES HE IS STILL DOING FAIRLY WELL FROM THE CERVICAL FACET BLOCK DONE ON 01/12/17 AND INTERVENTIONS ARE NOT NEEDED AT THIS TIME. PATIENT WILL RETURN TO THE CLINIC IN 6-8 WEEKS. INSTRUCTIONS WERE GIVEN, QUESTIONS WERE ANSWERED, PATIENT REPORTS UNDERSTANDING AND AGREES WITH THE PLAN. I, ASHLEE MENDOZA, DOCUMENTED THE ABOVE INFORMATION ACTING A SCRIBE FOR DR. LIM. I HAVE REVIEWED THE ABOVE DOCUMENT, WRITTEN BY ASHLEE HERZOG AND I VERIFY THAT IT IS ACCURATE. CERVICALGIA REFILL GABAPENTIN CAPSULE, 300 MG, 1 CAPSULE, ORALLY FOR PAIN, QID, 30 DAY(S), 120 CAPSULE, REFILLS 1, NOTES: 01-11-17 0900 OTHERS START CELEBREX CAPSULE, 200 MG, 1 CAPSULE WITH FOOD, ORALLY NEEDED FOR PAIN, ONCE A DAY MDDS1, 30 DAY(S), 30, REFILLS 1 PROCEDURE CODES FA211 ESTABILISHED PATIENT [facility] FACILITY CHARGE G8427 DOC MEDS VERIFIED W/PT OR RE G8730 PAIN ASSESS POS TOOL F/U PLAN DOC DISPOSITION & COMMUNICATION FOLLOW UP 6 WEEKS ELECTRONICALLY SIGNED BY JOAQUIM LIM MD ON 04/08/2017 AT 12:00 PM EDT DISCLAIMER : THIS IS A VISIT SUMMARY EXTRACTED FROM THE [employer] CHART. IT IS NOT A COPY OF THE [employer] PROGRESS NOTE. MTDD
== END ==
LOC: M PAIN 13:20
PROVIDERS: ATTEND Anesthesiology
DX: G89.29 Other chronic pain (principal); M47.812 Spondylosis without myelopathy or radiculopathy, cervical region; M54.2 Cervicalgia; H93.25 Central auditory processing disorder; M47.813 Spondylosis without myelopathy or radiculopathy, cervicothoracic region; F32.9 Major depressive disorder, single episode, unspecified; F41.9 Anxiety disorder, unspecified; Z79.899 Other long term (current) drug therapy

== ENCOUNTER → 2017-05-28 | Outpatient (CLI) | payer OTHER ==
--- NOTE | 2017-06-13 02:02 | ECWPNPC ---
PATIENT NAME: FANNIE VALLE : 1980 GENDER: MALE VISIT DATE: 05/28/2017 DISCHARGE DATE: 05/28/17 1626 VISIT LOCKED DATE TIME: PHYSICIAN: CARLINE MARTIN RESOURCE: CARLINE MARTIN REASON FOR APPOINTMENT 1. NECK HISTORY OF PRESENT ILLNESS HISTORY OF PRESENT ILLNESS: HERE FOR F/U AND MANAGEMENT OF CHRONIC NECK PAIN.RECENT INCREASE IN GABAPENTIN TO QID DIDNT HELP.RATING NECK PAIN /10.HAS TRIALED MULTIPLE INTERVENTIONS IE PT,CHIROPRACTIC AND ACCUPUNCTURE THAT WERE NOT HELPFUL.HAD 2 WEEK IMPROVEMENT IN CERVICAL PAIN AFTER RIGHT CERVICAL FACET BLOCK. PAIN THE PATIENT DESCRIBES THE PAIN... FALL RISK SCREENING: SCREENING :NO FALLS IN THE PAST YEAR CURRENT MEDICATIONS TAKING TOPIRAMATE 100 MG TABLET 1 TABLET ORALLY TWICE A DAY TAKING NEFAZODONE HCL 100 MG TABLET 2 TABLETS ORALLY TWICE A DAY TAKING LUNESTA 2 MG TABLET 1 TABLET IMMEDIATELY BEFORE BEDTIME ORALLY ONCE A DAY TAKING FISH OIL 1000 MG CAPSULE 1 CAPSULE ORALLY ONCE A DAY TAKING OMEPRAZOLE 20 MG CAPSULE DELAYED RELEASE 1 CAPSULE ORALLY ONCE A DAY TAKING GABAPENTIN 300 MG CAPSULE 1 CAPSULE ORALLY FOR PAIN QID, NOTES: TAKING TID DISCONTINUED WELLBUTRIN SR 100 MG TABLET EXTENDED RELEASE 12 HOUR 1 TABLET IN THE MORNING ORALLY ONCE A DAY DISCONTINUED TOPAMAX 25 MG TABLET 1 TABLET ORALLY DAILY DISCONTINUED REMERON 15 MG TABLET ONE HALF ORALLY ONCE A DAY DISCONTINUED MINIPRESS 1 MG CAPSULE 2 ORALLY ONCE A DAY DISCONTINUED CELEBREX 200 MG CAPSULE 1 CAPSULE WITH FOOD ORALLY NEEDED FOR PAIN ONCE A DAY MDDS1 DISCONTINUED ZOLOFT 100 MG TABLET 2 TABLET ORALLY ONCE A DAY DISCONTINUED TRAZODONE HCL 100 MG TABLET 1 TABLET AT BEDTIME ORALLY ONCE A DAY DISCONTINUED RANITIDINE 75 75 MG TABLET 1 TABLET ORALLY TWICE A DAY, NOTES: 01-12-17599 MEDICATION LIST REVIEWED AND RECONCILED WITH THE PATIENT PAST MEDICAL HISTORY TBI DEPRESSION ANXIETY AUDITORY PROCESSING DISORDER ALLERGIES N.K.D.A. SOCIAL HISTORY GENERAL: TOBACCO USE ARE YOU A:FORMER SMOKER HOW LONG HAS IT BEEN SINCE YOU LAST SMOKED?> 10 YEARS LUNG CANCER SCREENING SMOKING STATUS:FORMER SMOKER IS THE PATIENT BETWEEN THE AGE OF 53 AND 75?NO ALCOHOL SCREENING DID YOU HAVE A DRINK CONTAINING ALCOHOL IN THE PAST YEAR?YES HOW OFTEN DID YOU HAVE SIX OR MORE DRINKS ON ONE OCCASION IN THE PAST YEAR?LESS THAN MONTHLY (1 POINT) HOW MANY DRINKS DID YOU HAVE ON A TYPICAL DAY WHEN YOU WERE DRINKING IN THE PAST YEAR?3 OR 4 (1 POINT) HOW OFTEN DID YOU HAVE A DRINK CONTAINING ALCOHOL IN THE PAST YEAR?TWO TO FOUR TIMES A MONTH (2 POINTS) POINTS4 INTERPRETATIONPOSITIVE RECREATIONAL DRUG USE DRUG USE?NO SEXUAL HX HAD SEX IN THE LAST 12 MONTHS (VAGINAL, ORAL, OR ANAL)?YES WITHWOMEN ONLY HAVE YOU EVER HAD AN STD?NO MARITAL STATUS: . MANDAEISM MANDAEISM NO PREFERENCE LEARNING BARRIERS / SPECIAL NEEDS BARRIERS TO LEARNING?YES HEARING IMPAIRED?YES AUDOTORY PROCESSING DISORDER :HEARING AIDES VISION IMPAIRED?YES :CORRECTIVE LENSES COGNITIVELY IMPAIRED?YES TBI 2003 READINESS TO LEARN?YES LEARNING PREFERENCES?NO LEARNING CAPABILITIES PRESENT?YES EMOTIONAL BARRIERS?NO SPECIAL DEVICES?NO INFORMATION TECHNOLOGY DIRECTOR NEEDED?NO PAIN CLINIC PFS, CLERGY, PUBLIC HEALTH REFERRALS PFS REFERRAL NEEDED?NO CLERGY REFERRAL NEEDED?NO PUBLIC HEALTH REFERRAL NEEDED?NO HAS THE PATIENT BEEN EDUCATED REGARDING HIS/HER PLAN OF CARE?YES HAS THE PATIENT BEEN EDUCATED REGARDING PAIN, THE RISK FOR PAIN, THE IMPORTANCE OF EFFECTIVE PAIN MANAGEMENT, AND THE PAIN ASSESSMENT PROCESS?YES ADVANCE DIRECTIVES HEALTH CARE PROXY?NO WOULD YOU LIKE MORE INFORMATION?NO POWER OF EMBEDDED DEVELOPER?NO DO YOU HAVE A DNR?NO WOULD YOU LIKE MORE INFORMATION?NO LIVING WILL?NO WOULD YOU LIKE MORE INFORMATION?NO WOULD YOU LIKE MORE INFORMATION?NO DOMESTIC VIOLENCE DO YOU FEEL SAFE IN YOUR ENVIRONMENT?YES 05/28/17 REVIEWED AD. REVIEW OF SYSTEMS REVIEWED BY: PROVIDER: CARLINE MEDINA . CONSTITUTIONAL: ANY CHANGE IN YOUR MEDICAL CONDITION? NO . CHILLS NO . FEVER NO . INFECTION: DO YOU HAVE NEW INFECTIONS? NO . DO YOU HAVE HISTORY OF MRSA? NO . MUSCULOSKELETAL: ANY NEW PATTERNS OF PAIN OR NUMBNESS? YES, PAIN LOWER BACK WORSE AT TIMES . GASTROENTEROLOGY: ANY NEW CHANGE IN BOWEL CONTROL? NO . GENITOURINARY: ANY NEW CHANGE IN BLADDER CONTROL? NO . IS THERE A CHANCE YOU COULD BE ? NO . HEMATOLOGY/LYMPH: DO YOU TAKE ANY BLOOD THINNERS? (FOR EXAMPLE- COUMADIN, PLAVIX, AGGRENOX, PLATEL, PRADAXA, OR XARELTO) NO . WHEN WAS YOUR LAST DOSE? DATE: TIME: . NEUROLOGY: HAVE YOU FALLEN IN THE PAST 6 MONTHS? NO . ANY NEW EXTREMITY NUMBNESS OR WEAKNESS? NO . CARDIOLOGY: DO YOU HAVE A PACEMAKER OR DEFIBRILLATOR? NO . RESPIRATORY: HAVE YOU BEEN SICK IN THE PAST WEEK? NO . FEVER NO . FLU LIKE SYMPTOMS? NO . COUGH NO . INTEGUMENTARY: DO YOU HAVE ANY RASHES OR OPEN SORES? NO . ALLERGIC/IMMUNO: ARE YOU ALLERGIC TO SHELLFISH OR IV DYE? NO . ANY NEW ALLERGIES? NO . PSYCHIATRIC: DO YOU HAVE THOUGHTS OF HURTING YOURSELF OR SOMEONE ELSE? NO . ARE YOU ABUSED, NEGLECTED, OR IN AN UNSAFE ENVIRONMENT? NO . ENDOCRINOLOGY: ARE YOU DIABETIC? NO . OTHER: DO YOU NEED ANY PRESCRIPTIONS? YES . IF YES, PLEASE LIST: GABAPENTIN IF HE IS TO CONTINUE ON IT . ANY NEW PROBLEMS WITH YOUR MEDICATIONS? NO . WHEN DID YOU LAST EAT? ____ . WHEN DID YOU LAST DRINK? ____ . WHAT DID YOU LAST DRINK? ____ . NAME OF PERSON DRIVING YOU HOME? ____ . DO YOU HAVE ANY OTHER QUESTIONS OR CONCERNS NO . VITAL SIGNS WT 195 LBS, HT 72 IN, BMI 26.44 INDEX, BP 130/71 MM HG, HR 66 /MIN, RR 16 /MIN, TEMP 98.7 F, OXYGEN SAT % 98%, SAFE IN ENV? (Y/N) Y, REVIEWED BY: AD. EXAMINATION GENERAL EXAMINATION: GENERAL APPEARANCE:COMFORTABLE. PSYCHAFFECT NORMAL. LUNGS:LUNG IVORY ARE CLEAR TO AUSCULTATION BILATERALLY. GOOD MOVEMENT OF AIR. HEART:S1, S2 IN A REGULAR RATE AND RHYTHM. NO SIGNIFICANT MURMURS, RUBS OR GALLOPS NOTED. CERVICALMUSCLE STRENGTH TESTING 5/5 UPPER EXTREMETIES. EQAUL BASE LOADER STRENGTH BILATERAL HANDS.TENDER OVER CERVICAL AXIS AND RIGHT PARACERVICAL .. ASSESSMENTS MYOFASCIAL MUSCLE PAIN - M79.1 (PRIMARY) TREATMENT MYOFASCIAL MUSCLE PAIN STOP GABAPENTIN CAPSULE, 300 MG, 1 CAPSULE, ORALLY FOR PAIN, BID X 5 DAYS THEN DAILY X 5 DAYS THEN STOP, 10 DAY(S), 15, NOTES: TAKING TID NOTES: SLOWLY REDUCE AND DISCONTINUE GABAPENTIN 300MG.TAKE ONE TAB AM AND PM X5 DAYS THEN DAILY X 5 DAYS THEN STOP. PROCEDURE CODES FA211 ESTABILISHED PATIENT [facility] CHARGE DISPOSITION & COMMUNICATION FOLLOW UP 2 MONTHS ELECTRONICALLY SIGNED BY CAROL VENEGAS ON 06/12/2017 AT 08:53 AM EDT DISCLAIMER : THIS IS A VISIT SUMMARY EXTRACTED FROM THE [employer] CHART. IT IS NOT A COPY OF THE [facility] PROGRESS [facility]. MTDD
== END ==
LOC: M PAIN 14:30
PROVIDERS: ATTEND Nurse Practitioner Family
DX: G89.29 Other chronic pain (principal); M79.1 Myalgia; M54.2 Cervicalgia; F32.9 Major depressive disorder, single episode, unspecified; H93.25 Central auditory processing disorder; F41.9 Anxiety disorder, unspecified; Z87.820 Personal history of traumatic brain injury; Z87.891 Personal history of nicotine dependence; Z79.899 Other long term (current) drug therapy

== ENCOUNTER → 2017-08-24 | Outpatient (CLI) | payer OTHER | LOC: M PAIN 15:15 | DX: G89.29 Other chronic pain (principal); M47.812 Spondylosis without myelopathy or radiculopathy, cervical region; M54.2 Cervicalgia; M47.813 Spondylosis without myelopathy or radiculopathy, cervicothoracic region; F32.9 Major depressive disorder, single episode, unspecified; F41.9 Anxiety disorder, unspecified; H93.25 Central auditory processing disorder; Z79.899 Other long term (current) drug therapy; Z87.820 Personal history of traumatic brain injury; Z87.891 Personal history of nicotine dependence | CPT/HCPCS: G0463 ==